=== PATIENT | female | born 2000 | race Hispanic/Latino ===

== ENCOUNTER 2024-06-29 18:15 | Emergency (ER) | payer OTHER, SELFPAY ==
[~2024-06-29] VITALS: Ht 152.4 cm; Wt 58.1 kg
[2024-06-29 19:37] LABS: BASO % 0.4 % (0.0-1.0); EOS # 0.2 10^3/uL (0.0-0.5); EOS % 2.5 % (0.0-3.0); HEMATOCRIT 36.2 % (36.0-47.0); HEMOGLOBIN 11.5 g/dl (12.0-15.5); LYMPH # 1.8 10^3/uL (1.5-5.0); LYMPH % 27.1 % (24.0-44.0); MEAN CORPUSCULAR HEMOGLOBIN 27.4 pg (27.0-33.0); MEAN CORPUSCULAR HGB CONC 31.8 g/dl (32.0-36.5); MEAN CORPUSCULAR VOLUME 86.2 fl (80.0-96.0); MONO # 0.6 10^3/uL (0.0-0.8); MONO % 8.6 % (2.0-8.0); NEUTROPHILS # 4.1 10^3/uL (1.5-8.5); NEUTROPHILS % 61.3 % (36.0-66.0); PLATELET COUNT, AUTOMATED 291 10^3/uL (150-450); WHITE BLOOD COUNT 6.8 10^3/uL (4.0-10.0)
[2024-06-29 20:02] LABS: HCG, SERUM QUANTITATIVE 44.4 MIU/ML (<4.2)
[2024-06-29 20:03] LABS: BLOOD UREA NITROGEN 10 MG/DL (9-23); CALCIUM LEVEL 8.9 MG/DL (8.5-10.1); CARBON DIOXIDE LEVEL 26 MMOL/L (20-31); CHLORIDE LEVEL 109 MMOL/L (98-107); CREATININE FOR GFR 0.53 MG/DL (0.55-1.30); GLOMERULAR FILTRATION RATE > 60.0 (>60); GLUCOSE, FASTING 87 MG/DL (60-100); SODIUM LEVEL 140 MMOL/L (136-145)
[2024-06-29 22:56] VITALS: BP 128/75; TEMP 97.8; O2SAT 100
[2024-06-29 22:59] LABS: SPECIFIC GRAVITY,URINE MANUAL 1.026 (1.002-1.035)
[2024-06-29 23:00] LABS: BLOOD URINE MANUAL POSITIVE (NEGATIVE); LEUKOCYTE ESTERASE, URINE MAN TRACE (NEGATIVE); NITRITE, URINE MANUAL NEGATIVE (NEGATIVE)
[2024-06-29 23:01] LABS: BILIRUBIN, URINE MANUAL 2+ (NEGATIVE); GLUCOSE, URINE (UA) MANUAL NEGATIVE (NEGATIVE); KETONE, URINE MANUAL 2+ mg/dL (NEGATIVE); PROTEIN, URINE MANUAL 2+ mg/dL (NEGATIVE); UROBILINOGEN, URINE MANUAL NORMAL (NORMAL)
[2024-06-29 23:02] LABS: APPEARANCE, URINE MANUAL CLOUDY (CLEAR); COLOR, URINE MANUAL AMBER (YELLOW)
[2024-06-29 23:03] LABS: RBC, URINE TNTC /hpf (0-3); SQUAMOUS EPITHELIAL CELL URINE SMALL AMOUNT /hpf (SMALL AMT)
[2024-06-29 23:04] LABS: HYALINE CAST, URINE NONE SEEN /lpf (0-1)
[2024-06-29 23:05] LABS: BACTERIA, URINE NONE SEEN
== END 2024-06-29 23:24 | disposition home or self-care (01) ==
LOC: M ED 18:15
DX: O20.0 Threatened abortion (principal); Z3A.01 Less than 8 weeks gestation of pregnancy

== ENCOUNTER 2024-10-19 14:20 | Emergency (ER) | payer OTHER ==
[~2024-10-19] VITALS: Ht 152.4 cm; Wt 57.3 kg
[2024-10-19 15:19] LABS: BASO % 0.4 % (0.0-1.0); EOS # 0.2 10^3/uL (0.0-0.5); EOS % 2.3 % (0.0-3.0); HEMATOCRIT 32.7 % (36.0-47.0); HEMOGLOBIN 10.9 g/dl (12.0-15.5); KETONE, URINE AUTO RFX NEGATIVE (NEGATIVE); LEUKOCYTE ESTERASE UR AUTO RFX NEGATIVE (NEGATIVE); LYMPH # 1.3 10^3/uL (1.5-5.0); LYMPH % 17.9 % (24.0-44.0); MEAN CORPUSCULAR HEMOGLOBIN 28.3 pg (27.0-33.0); MEAN CORPUSCULAR HGB CONC 33.3 g/dl (32.0-36.5); MEAN CORPUSCULAR VOLUME 84.9 fl (80.0-96.0); MONO # 0.6 10^3/uL (0.0-0.8); MONO % 8.4 % (2.0-8.0); MUCUS, URINE RFX SMALL (NEGATIVE); NEUTROPHILS # 5.1 10^3/uL (1.5-8.5); NEUTROPHILS % 70.7 % (36.0-66.0); NITRITE, URINE AUTO RFX NEGATIVE (NEGATIVE); PLATELET COUNT, AUTOMATED 253 10^3/uL (150-450); RBC, URINE AUTO RFX 0 /HPF (0-3); RED BLOOD COUNT 3.85 10^6/uL (4.00-5.40); SQUAM EPITHELIAL CELL UR AURFX 6 /HPF (0-6); WHITE BLOOD COUNT 7.3 10^3/uL (4.0-10.0)
[2024-10-19 15:48] LABS: BLOOD UREA NITROGEN 10 MG/DL (9-23); CARBON DIOXIDE LEVEL 26 MMOL/L (20-31); CHLORIDE LEVEL 107 MMOL/L (98-107); CREATININE FOR GFR 0.51 MG/DL (0.55-1.30); GLOMERULAR FILTRATION RATE > 60.0 (>60); GLUCOSE, FASTING 78 MG/DL (60-100); POTASSIUM SERUM 4.6 MMOL/L (3.5-5.1); SODIUM LEVEL 140 MMOL/L (136-145)
[2024-10-19 16:19] LABS: HCG, SERUM QUANTITATIVE 113903.7 MIU/ML (<4.2)
[2024-10-19 16:23] LABS: Trichomonas vaginalis (AMP) NOT DETECTED (NEGATIVE)
[2024-10-19 16:47] LABS: GC DNA AMPLIFICATION NEGATIVE (NEGATIVE)
[2024-10-19 17:28] VITALS: BP 110/58; TEMP 98.3; O2SAT 98
== END 2024-10-19 18:09 | disposition home or self-care (01) ==
LOC: M ED 14:20
DX: O00.01 Abdominal pregnancy with intrauterine pregnancy (principal); Z3A.01 Less than 8 weeks gestation of pregnancy

== ENCOUNTER 2025-01-09 11:00 | Emergency (ER) | payer OTHER ==
[~2025-01-09] VITALS: Ht 152.4 cm; Wt 59.8 kg
[2025-01-09] MEDS ORDERED: PREN1CHW6 PO (11:12)
[2025-01-09 11:48] LABS: BASO % 0.3 % (0.0-1.0); EOS # 0.1 10^3/uL (0.0-0.5); EOS % 1.7 % (0.0-3.0); HEMOGLOBIN 10.8 g/dl (12.0-15.5); LYMPH # 0.8 10^3/uL (1.5-5.0); LYMPH % 12.7 % (24.0-44.0); MEAN CORPUSCULAR HGB CONC 33.8 g/dl (32.0-36.5); MEAN CORPUSCULAR VOLUME 88.9 fl (80.0-96.0); MONO # 0.5 10^3/uL (0.0-0.8); MONO % 7.6 % (2.0-8.0); NEUTROPHILS # 4.9 10^3/uL (1.5-8.5); NEUTROPHILS % 77.1 % (36.0-66.0); PLATELET COUNT, AUTOMATED 249 10^3/uL (150-450); WHITE BLOOD COUNT 6.3 10^3/uL (4.0-10.0)
[2025-01-09 12:15] LABS: LIPASE 39 U/L (12-53)
[2025-01-09 12:17] LABS: ALBUMIN 3.1 G/DL (3.2-5.2); ALKALINE PHOSPHATASE 72 U/L (35-104); ALT/SGPT 17 U/L (7.0-40); AST/SGOT 23 U/L (<34); BILIRUBIN,DIRECT < 0.1 MG/DL (<0.4); BILIRUBIN,TOTAL 0.5 MG/DL (0.3-1.2)
[2025-01-09] MEDS: NS (Normal Saline) 0.9% 1,000 ML IV ONE (12:20)
[2025-01-09] MEDS: ONDANSETRON 4MG 2ML VIAL IV ONE (12:20)
[2025-01-09 13:17] VITALS: BP 100/70; TEMP 96.2; O2SAT 100
[2025-01-09] MEDS ORDERED: ONDA-282 PO (14:09)
== END 2025-01-09 14:20 | disposition home or self-care (01) ==
LOC: M ED 11:00
DX: O21.9 Vomiting of pregnancy, unspecified (principal); Z79.83 Long term (current) use of bisphosphonates; Z79.899 Other long term (current) drug therapy; Z3A.18 18 weeks gestation of pregnancy
CPT/HCPCS: 80047; 80076; 83690; 85025; 87486; 87581; 87633; 87798; 96361; 96374; 99284; J2405